=== PATIENT | male | born 1955 | race Caucasian/White ===

== ENCOUNTER 2016-11-12 02:45 | Emergency (ER) | payer MEDICARE, OTHER ==
[2016-11-12 03:43] LABS: HEMOGLOBIN 15.9 gm/dl (14.0-17.5); RED BLOOD COUNT 5.07 M/UL (4.20-5.50); WHITE BLOOD COUNT 16.8 K/UL (4.5-11.0)
[2016-11-12 03:56] LABS: BUN/CREATININE RATIO 13 (0-10)
== END 2016-11-12 09:00 | disposition home or self-care (01) ==
LOC: ER1 02:45
PROVIDERS: Family Medicine
DX: M25.562 Pain in left knee (principal); M25.561 Pain in right knee; J40 Bronchitis, not specified as acute or chronic; D72.829 Elevated white blood cell count, unspecified; F79 Unspecified intellectual disabilities; R19.7 Diarrhea, unspecified; G40.909 Epilepsy, unspecified, not intractable, without status epilepticus; E03.9 Hypothyroidism, unspecified; Z79.899 Other long term (current) drug therapy; W17.89XA Other fall from one level to another, initial encounter; Y92.009 Unspecified place in unspecified non-institutional (private) residence as the place of occurrence of the external cause
CPT/HCPCS: 36415; 70450; 71010; 72125; 80053; 81001; 82550; 82553; 83874; 84484; 85025; 87086; 93005; 96361; 96365; 99285; J1956

== ENCOUNTER 2016-11-17 22:24 | Emergency (ER) | payer MEDICARE, OTHER | END 2016-11-18 03:10 | disposition home or self-care (01) | LOC: ER1 22:24 | DX: S80.02XA Contusion of left knee, initial encounter (principal); S80.01XA Contusion of right knee, initial encounter; I10 Essential (primary) hypertension; I51.9 Heart disease, unspecified; Z95.0 Presence of cardiac pacemaker; W01.0XXA Fall on same level from slipping, tripping and stumbling without subsequent striking against object, initial encounter; Y92.009 Unspecified place in unspecified non-institutional (private) residence as the place of occurrence of the external cause; Z79.899 Other long term (current) drug therapy | CPT/HCPCS: 73564; 93005; 99283 ==

== ENCOUNTER → 2020-11-17 | Outpatient (CLI) | payer MEDICARE, OTHER | LOC: KOH-I 09:30 | DX: S82.042A Displaced comminuted fracture of left patella, initial encounter for closed fracture (principal) | CPT/HCPCS: 73700 ==

== ENCOUNTER 2021-12-22 12:09 | Observation (INO) | payer MEDICARE, OTHER ==
[~2021-12-22] VITALS: Ht 170.2 cm; Wt 115.7 kg
[~2021-12-22 12:09] MED LIST: ALENDRONATE SOD70 MG PO; ASPIRIN CHEWABL81 MG PO; ATORVASTATIN CA40 MG PO; BENZTROPINE MESY1 MG PO; COLACE100 MG PO; FLOMAX 0.4 MG0.4 MG PO; IMODIUM CAP 2 MG2 MG PO; INVEGA SUS156 MG/1 M IM; KEPPRA 500 MG500 MG PO; LEVOTHYROXINE125 MCG PO; LIDOCAINE1 EAC1 TP; LOPRESSOR 25 MG25 MG PO; LORATADINE10 MG PO; MELOXICAM15 MG PO; PRADAXA 150 MG150 MG PO; PREGABALIN100 MG PO; PREGABALIN25 MG PO; PRIMIDONE250 MG PO; RISPERDAL1 MG PO; TOPAMAX 100 MG100 MG PO; TOPAMAX100 MG PO; TRAMADOL HCL50 MG PO; TYLENOL325 MG PO; VITAMIN B-121000 MCG PO
[2021-12-22] MEDS ORDERED: FUROSEMIDE20 MG PO (13:20)
[2021-12-22] MEDS ORDERED: KENALOG CREAM 015 GM TOP (13:21)
[2021-12-22] MEDS ORDERED: NEURONTIN 100100 MG PO (13:21)
[2021-12-22] MEDS ORDERED: DOCUSATE SODIU100 MG PO (13:22)
[2021-12-22] MEDS ORDERED: ACETAMINOPHEN325 MG PO (13:22)
[2021-12-22] MEDS ORDERED: VITAMIN B-121000 MCG PO (13:23)
[2021-12-22 15:44] LABS: HEMOGLOBIN 13.5 gm/dl (14.0-17.5); RED BLOOD COUNT 4.4 M/UL (4.20-5.50); WHITE BLOOD COUNT 8.4 K/UL (4.5-11.0)
[2021-12-22 16:08] LABS: BUN/CREATININE RATIO 20 (0-10)
--- NOTE | 2021-12-22 16:18 | NUR ---
NOTIFIED ST [facility]AYATHRI FOR DEVICE INTERROGATION. REP, CHLOE, SUPPOSED TO COME TO INTERROGATE DEVICE WHEN AVAILABLE.
[2021-12-23 02:26] LABS: HEMOGLOBIN 12.4 gm/dl (14.0-17.5); RED BLOOD COUNT 4.12 M/UL (4.20-5.50); WHITE BLOOD COUNT 7.7 K/UL (4.5-11.0)
[2021-12-23 02:41] LABS: BUN/CREATININE RATIO 23 (0-10)
[2021-12-24 01:45] LABS: HEMOGLOBIN 12.3 gm/dl (14.0-17.5); RED BLOOD COUNT 4.12 M/UL (4.20-5.50); WHITE BLOOD COUNT 8.8 K/UL (4.5-11.0)
[2021-12-24 02:10] LABS: BUN/CREATININE RATIO 20 (0-10)
[2021-12-24] MEDS ORDERED: LOPRESSOR 25 MG25 MG PO (11:05)
== END 2021-12-24 16:55 | disposition home or self-care (01) ==
LOC: PROG CARE 12:09
PROVIDERS: Physician Assistant; ADMIT Internal Medicine
DX: R53.1 Weakness (principal); I95.9 Hypotension, unspecified; I48.0 Paroxysmal atrial fibrillation; G40.909 Epilepsy, unspecified, not intractable, without status epilepticus; E03.9 Hypothyroidism, unspecified; G61.0 Guillain-Barre syndrome; G31.84 Mild cognitive impairment of uncertain or unknown etiology; I10 Essential (primary) hypertension; N40.0 Benign prostatic hyperplasia without lower urinary tract symptoms; E66.01 Morbid (severe) obesity due to excess calories; Z95.0 Presence of cardiac pacemaker; Z91.018 Allergy to other foods
CPT/HCPCS: 36415; 71045; 80053; 82550; 82553; 83735; 83880; 84100; 84439; 84443; 84484; 85025; 85610; 87040; 93005; 97161; G0378; G0379